=== PATIENT | female | born 1965 | race Caucasian/White ===

== ENCOUNTER → 2020-12-04 | Day surgery (SDC) | payer OTHER ==
[~2020-12-04] VITALS: Ht 160 cm; Wt 108.9 kg
[~2020-12-04] MED LIST: ALEVE220 M1 PO; ATORVASTATIN CA20 MG PO; KRILL OIL 3501 EACH PO; NORCO 5-325 TA1 EACH PO; OMEPRAZOLE40 MG PO; PROTONIX 40MG T40 MG PO; VITAMIN D1000 UNIT PO; VITAMIN D21250 MCG PO
== END | disposition home or self-care (01) ==
LOC: FAS 10:10
DX: Z12.11 Encounter for screening for malignant neoplasm of colon (principal); D12.3 Benign neoplasm of transverse colon; K22.70 Barrett's esophagus without dysplasia; K21.00 Gastro-esophageal reflux disease with esophagitis, without bleeding; K44.9 Diaphragmatic hernia without obstruction or gangrene; K57.30 Diverticulosis of large intestine without perforation or abscess without bleeding; F17.210 Nicotine dependence, cigarettes, uncomplicated; J45.909 Unspecified asthma, uncomplicated; K21.9 Gastro-esophageal reflux disease without esophagitis; E78.00 Pure hypercholesterolemia, unspecified; Z86.010 Personal history of colon polyps; Z79.899 Other long term (current) drug therapy
CPT/HCPCS: J2704; J7120